=== PATIENT | female | born 1975 | race African-American/Black ===

== ENCOUNTER 2023-03-18 00:14 | Emergency (ER) | payer MEDICAID, MEDICARE ==
[~2023-03-18] VITALS: Ht 162.6 cm; Wt 73.0 kg
[2023-03-18 00:19] VITALS: O2SAT 100
[2023-03-18] MEDS ORDERED: PRED10TA MT (02:32)
[2023-03-18] MEDS ORDERED: ALBU6.7H15 INH (02:32)
[2023-03-18] MEDS ORDERED: PREDNISONE 20MG TABLET PO ONE (02:45)
[2023-03-18 03:10] VITALS: BP 145/99; PULSE 78; RESP 16; TEMP 98.1
== END 2023-03-18 03:14 | disposition home or self-care (01) ==
LOC: ER 00:16
DX: J45.909 Unspecified asthma, uncomplicated (principal); F17.290 Nicotine dependence, other tobacco product, uncomplicated; Z88.0 Allergy status to penicillin
CPT/HCPCS: 99283; 71045; 99406; J7512

== ENCOUNTER 2023-07-27 00:14 | Emergency (ER) | payer MEDICAID ==
[~2023-07-27] VITALS: Ht 162.6 cm; Wt 90.0 kg
[~2023-07-27 00:14] MED LIST: ALBU6.7H15 INH; APIX5TAB MT; ARIP2TAB16 MT; ATOR80TA MT; BENA40TA91 MT; BICT1TAB PO; CLOP75TA33 MT; CLOT21CR VG; DULO60CA64 MT; EMPA10TA MT; FAMO-135 MT; GLIP10TA10 MT; LANS30CA55 MT; LEVE500T19 MT; LINA5TAB MT; LUBI24CA5 PO; METF-873 MT; METO-385 MT; MONT-46 MT; PRED10TA MT; PREG75CA MT
[2023-07-27 00:17] VITALS: O2SAT 98
[2023-07-27] MEDS: SODIUM CHLORIDE 0.9% 1,000 ML IV ONE (01:41)
[2023-07-27] MEDS: ONDANSETRON HCL 4MG/2ML INJ IV STA (03:45)
[2023-07-27] MEDS: KETOROLAC 30MG/ML VIAL IV STA (03:45)
[2023-07-27 06:45] VITALS: BP 139/85; PULSE 68; RESP 14; TEMP 98.1
== END 2023-07-27 06:52 | disposition home or self-care (01) ==
LOC: ER 00:14
DX: R10.9 Unspecified abdominal pain (principal); F12.10 Cannabis abuse, uncomplicated; J45.909 Unspecified asthma, uncomplicated; E11.9 Type 2 diabetes mellitus without complications; I10 Essential (primary) hypertension; I25.2 Old myocardial infarction; Z86.73 Personal history of transient ischemic attack (TIA), and cerebral infarction without residual deficits; Z21 Asymptomatic human immunodeficiency virus [HIV] infection status; Z79.899 Other long term (current) drug therapy
CPT/HCPCS: 99285; 74176; 71045; 93005; J7030

== ENCOUNTER 2023-09-06 23:14 | Emergency (ER) | payer MEDICAID ==
[~2023-09-06] VITALS: Ht 167.6 cm; Wt 80.0 kg
[2023-09-06 23:23] VITALS: O2SAT 98
[2023-09-06] MEDS: SODIUM CHLORIDE 0.9% 1,000 ML IV ONE (23:30)
[2023-09-06] MEDS ORDERED: FAMOTIDINE 20MG/2ML VIAL IV ONE (23:30)
[2023-09-06] MEDS ORDERED: ONDANSETRON HCL 4MG/2ML INJ IV ONE (23:30)
[2023-09-07 01:26] LABS: BASOPHILS % 0.7 % (0.0-2.0); EOSINOPHILS % 0.5 % (0.0-5.0); HEMATOCRIT. 36.9 % (36.0-48.0); HEMOGLOBIN. 12.2 g/dL (12.0-16.0); LYMPHOCYTES % 28.6 % (20.0-50.0); MEAN CORPUSCULAR HEMOGLOBIN 27.9 pg (28.0-32.0); MEAN CORPUSCULAR HGB CONC 33.1 g/dL (31.0-37.0); MEAN CORPUSCULAR VOLUME 84.2 fL (81.0-99.0); MEAN PLATELET VOLUME 7.5 fl (7.4-10.4); MONOCYTES % 7.4 % (2.0-8.0); NEUTROPHILS % 62.8 % (40.0-76.0); PLATELET 370 x1000/uL (130-400); RED BLOOD CELL COUNT 4.38 mill/uL (4.2-5.4); RED CELL DISTRIBUTION WIDTH 15.5 % (11.6-14.6); WHITE BLOOD COUNT 9.4 x1000/uL (4.5-11.0)
[2023-09-07 01:30] LABS: CHLORIDE 100 mEq/L (98-107); POTASSIUM 3.9 mEq/L (3.5-5.1); SODIUM 136 mEq/L (136-145)
[2023-09-07 01:31] LABS: CALCIUM 9.5 mg/dL (8.7-10.4); CARBON DIOXIDE 27 mEq/L (21-32)
[2023-09-07 01:34] LABS: HCG SCREEN NEGATIVE
[2023-09-07 01:36] LABS: CREATININE 0.9 mg/dL (0.6-1.0); GLUCOSE 154 mg/dL (70-105); UREA NITROGEN BLOOD 5 mg/dL (9-23)
[2023-09-07 01:37] LABS: TROPONIN I HIGH SENSITIVITY 8 ng/L (3.0-34)
[2023-09-07 01:38] LABS: ALANINE AMINOTRANSFERASE 10 IU/L (10-49); ALBUMIN 3.9 g/dL (3.2-4.8); ASPARTATE AMINOTRANSFERASE 13 IU/L (<34); BILIRUBIN DIRECT 0.2 mg/dL (<=3.0); BILIRUBIN TOTAL 0.4 mg/dL (0.1-1.0); PROTEIN TOTAL 6.6 g/dL (6.0-8.3)
[2023-09-07] MEDS: MAGNESIUM/ALUMINUM HYDROXIDE/SIMETHICONE 30ML UDC PO ONE (03:05)
[2023-09-07] MEDS: FAMOTIDINE 20MG TABLET PO ONE (03:05)
[2023-09-07] MEDS: ONDANSETRON 4MG ODT PO ONE (03:06)
[2023-09-07 05:20] VITALS: BP 149/59; PULSE 79; RESP 16; TEMP 98
== END 2023-09-07 05:40 | disposition home or self-care (01) ==
LOC: ER 23:14
DX: K29.70 Gastritis, unspecified, without bleeding (principal); J45.909 Unspecified asthma, uncomplicated; E11.9 Type 2 diabetes mellitus without complications; I10 Essential (primary) hypertension; I25.2 Old myocardial infarction; Z86.73 Personal history of transient ischemic attack (TIA), and cerebral infarction without residual deficits; Z88.0 Allergy status to penicillin; Z91.018 Allergy to other foods
CPT/HCPCS: 99284; 36415; 80076; 80048; 84703; 83605; 83690; 85025; 84484; J7030; Q0162